=== PATIENT | male | born 1995 | race Hispanic/Latino ===

== ENCOUNTER 2024-05-27 19:02 | Inpatient (IN) | payer OTHER ==
[~2024-05-27] VITALS: Ht 160 cm; Wt 99.6 kg
[2024-05-27 19:53] LABS: ADD UA MICROSCOPIC NO; APPEARANCE,URINE CLEAR (CLEAR); BILIRUBIN,URINE NEGATIVE (NEGATIVE); COLOR,URINE COLORLESS (YELLOW); GLUCOSE, URINE (UA) >=1000 mg/dL (NEGATIVE); KETONES,URINE 150 mg/dL (NEGATIVE); LEUKOCYTE ESTERASE ,URINE NEGATIVE Leu/uL (NEGATIVE); NITRATE,URINE NEGATIVE (NEGATIVE); OCCULT BLOOD,URINE SMALL (NEGATIVE); PROTEIN,URINE 30 mg/dL (NEGATIVE); UROBILINOGEN,URINE 0.2 mg/dL (0.2-1.0)
[2024-05-27 19:55] LABS: MUCUS,URINE RARE LPF (None Seen); RBC,URINE 0-1 /HPF (0-1); WBC,URINE 0-1 /HPF (0-1)
[2024-05-27 20:40] LABS: BASOPHILS # (AUTO) 0.04 K/uL (0.00-0.20); BASOPHILS % (AUTO) 0.4 % (0.0-5.0); EOSINOPHILS % (AUTO) 1.1 % (0.0-8.0); HEMATOCRIT 48.5 % (42-54); IMMATURE GRANULOCYTE ABSOLUTE 0.04 K/uL (0-1); LYMPHOCYTES # (AUTO) 0.9 K/uL (1.0-4.8); LYMPHOCYTES % (AUTO) 9.2 % (21.0-51.0); MEAN CORPUSCULAR HGB CONC 35.3 g/dL (32.0-36.0); MEAN CORPUSCULAR VOLUME 85.1 fL (79-99); MONOCYTES # (AUTO) 0.5 K/uL (0.1-1.0); MONOCYTES % (AUTO) 5.4 % (3.0-13.0); NEUTROPHILS # (AUTO) 7.8 K/uL (1.8-7.7); NEUTROPHILS % (AUTO) 83.5 % (40.0-77.0); PLATELET COUNT (AUTO) 269 K/uL (130-400); RED CELL DISTRIBUTION WIDTH 13.2 % (11.0-15.5); WHITE BLOOD COUNT (AUTO) 9.3 K/uL (4.8-10.8)
[2024-05-27 20:54] LABS: CARBON DIOXIDE 11 mmol/L (21-32); CHLORIDE 95 mmol/L (101-111); CREATININE 1.2 mg/dL (0.5-1.3); GLOMERULAR FILTR. RATE CALC 86 mL/min (>90); GLUCOSE,RANDOM 162 mg/dL (70-105); POTASSIUM 4.6 mmol/L (3.5-5.1); SODIUM SERUM 133 mmol/L (136-145); UREA NITROGEN, BLOOD 10 mg/dL (7-18)
[2024-05-27] MEDS ORDERED: INSULIN humuLIN R 100 UNIT/ML 3ML IJ STA (20:55)
[2024-05-27 22:11] LABS: HEMOGLOBIN A1C 10.7 % (4.0-6.0)
[2024-05-27 22:26] LABS: CREATINE KINASE, TOTAL 365 U/L (21-232)
[2024-05-27] MEDS: 0.9%NACL 1000ML 1,000 ML IV ONE (22:34)
[2024-05-27] MEDS: ONDANSETRON 4MG INJ ONE (22:34)
[2024-05-27] MEDS: ONDANSETRON 4MG INJ IVP ONE (22:34)
[2024-05-27] MEDS: 0.9%NACL 1000ML 1,000 ML IV SCH (22:45)
[2024-05-27] MEDS: [UNRECOGNIZED DRUG - OTHER] IV ONE (22:45)
[2024-05-27] MEDS: D5W-1/2 NS/20MEQ KCL 1,000 ML IV SCH (22:49)
[2024-05-27] MEDS ORDERED: INSULIN REGULAR, HUMAN 3ML 100 UNIT in 0.9%NACL 100ML 100 ML IV SCH (23:00)
[2024-05-27] MEDS ORDERED: DEXTROSE 5 %-0.45 % NACL 1,000 ML IV SCH ×3 (23:00)
[2024-05-27] MEDS ORDERED: POTASSIUM CHLORIDE 20MEQ/10ML 20 MEQ in 0.9%NACL 1000ML 1,000 ML IV SCH ×3 (23:00)
[2024-05-27] MEDS ORDERED: acetaMINOPHEN 325 MG TAB PO PRN (23:00)
[2024-05-27] MEDS ORDERED: MANNITOL 20% 500 ML IV.SOLN IV SCH (23:00)
[2024-05-27] MEDS ORDERED: 0.9%NACL 1000ML 1,000 ML IV SCH ×2 (23:00)
[2024-05-27] MEDS ORDERED: MAGNESIUM 2GM PREMIX 50ML 50 ML IV SCH ×3 (23:00)
[2024-05-27] MEDS ORDERED: D5W-1/2 NS/20MEQ KCL 1,000 ML IV SCH ×2 (23:00)
[2024-05-27 23:21] LABS: CREATININE 0.9 mg/dL (0.5-1.3); POTASSIUM 3.7 mmol/L (3.5-5.1)
[2024-05-27] MEDS: PHARMACY COMMUNICATION MISC SCH (23:45)
[2024-05-28] VITALS (37 sets, daily range): BP systolic 94–123; BP diastolic 31–73; PULSE 63–107; RESP 13–29; TEMP 97.2–98.6; O2SAT 96–99
[2024-05-28] MEDS ORDERED: 0.9%NACL 1000ML 2,000 ML IV SCH
[2024-05-28] MEDS: SODIUM BICARB 50MEQ 50ML VIAL IV ONE ×2 (00:09→13:20)
[2024-05-28] MEDS: DEXTROSE 10% IV SCH (00:25)
[2024-05-28] MEDS: POTASSIUM CHLORIDE IV SCH (00:25)
[2024-05-28] MEDS: WATER IV SCH (00:25)
[2024-05-28] MEDS: INSULIN REGULAR, HUMAN 3ML 100 UNIT in 0.9%NACL 100ML 100 ML IV SCH (01:57)
[2024-05-28 04:03] LABS: ABG OXYGEN SATURATION 46.8 % (94.0-98.0); BASE EXCESS,VENOUS BLOOD GAS -18.6 (-2.0-3.0); HCO3,VENOUS BLOOD GAS 7.4 (22.0-29.0); PCO2,VENOUS BLOOD GAS 20 (38-54); PH,VENOUS BLOOD GAS 7.188 (7.320-7.430); PO2,VENOUS BLOOD GAS 30.6 mmHg (23.0-48.0); VENT MODE, BG RA (ROOM AIR)
[2024-05-28 04:09] LABS: BASOPHILS # (AUTO) 0.01 K/uL (0.00-0.20); BASOPHILS % (AUTO) 0.1 % (0.0-5.0); EOSINOPHILS # (AUTO) 0.01 K/uL (0.00-0.70); EOSINOPHILS % (AUTO) 0.1 % (0.0-8.0); HEMATOCRIT 41.1 % (42-54); IMMATURE GRANULOCYTE ABSOLUTE 0.03 K/uL (0-1); LYMPHOCYTES # (AUTO) 0.9 K/uL (1.0-4.8); LYMPHOCYTES % (AUTO) 11.7 % (21.0-51.0); MEAN CORPUSCULAR HEMOGLOBIN 30.2 pg (27.0-33.0); MEAN CORPUSCULAR HGB CONC 34.5 g/dL (32.0-36.0); MEAN CORPUSCULAR VOLUME 87.4 fL (79-99); MONOCYTES # (AUTO) 0.8 K/uL (0.1-1.0); MONOCYTES % (AUTO) 9.9 % (3.0-13.0); NEUTROPHILS # (AUTO) 5.9 K/uL (1.8-7.7); NEUTROPHILS % (AUTO) 77.8 % (40.0-77.0); PLATELET COUNT (AUTO) 232 K/uL (130-400); RED CELL DISTRIBUTION WIDTH 13.4 % (11.0-15.5); WHITE BLOOD COUNT (AUTO) 7.6 K/uL (4.8-10.8)
[2024-05-28 04:22] LABS: CREATININE 1.1 mg/dL (0.5-1.3); POTASSIUM 4.3 mmol/L (3.5-5.1)
[2024-05-28 04:25] LABS: HEMOGLOBIN A1C 11.1 % (4.0-6.0)
[2024-05-28] MEDS: 0.9%NACL 1000ML 1,000 ML IV ONE (04:31)
[2024-05-28 04:48] LABS: MAGNESIUM 2.1 mg/dL (1.80-2.40); PHOSPHORUS 1.9 mg/dL (2.5-4.9); THYROID STIMULATING HORMONE 0.78 uIU/mL (0.36-3.74)
[2024-05-28 05:26] LABS: SARS-CoV-2, RNA, NAAT NEGATIVE SARS CoV-2 (NEGATIVE)
[2024-05-28 05:32] LABS: INFLUENZA TYPE A Negative For Type A (NEGATIVE); INFLUENZA TYPE B Negative For Type B (NEGATIVE)
[2024-05-28 05:38] LABS: RAPID GROUP A STREP negative (NEGATIVE)
[2024-05-28] MEDS: NEUtra-PHOS PACKET 1 EACH PO SCH (06:03)
[2024-05-28 08:29] LABS: ABG OXYGEN SATURATION 82.2 % (94.0-98.0); BASE EXCESS,VENOUS BLOOD GAS -18.7 (-2.0-3.0); DEVICE COMMENT LEO RN VENOUS; HCO3,VENOUS BLOOD GAS 8.2 (22.0-29.0); PCO2,VENOUS BLOOD GAS 23 (38-54); PH,VENOUS BLOOD GAS 7.162 (7.320-7.430); PO2,VENOUS BLOOD GAS 45.1 mmHg (23.0-48.0); VENT MODE, BG RA (ROOM AIR)
[2024-05-28] MEDS: PANTOPRAZOLE 40 MG/VIAL IVP SCH (09:15)
[2024-05-28 10:23] LABS: CREATININE 1.1 mg/dL (0.5-1.3); POTASSIUM 3.2 mmol/L (3.5-5.1)
[2024-05-28] MEDS: CEFTRIAXONE 2GM VIAL IVPB SCH (13:15)
[2024-05-28] MEDS: INSULIN GLARgine 100 UNITS/ML 10 ML VIAL SQ SCH (13:26)
[2024-05-28] MEDS: 0.9% NACL 500ML IV.SOLN 500 ML IV ONE (13:47)
[2024-05-28] MEDS: LACTATED RINGERS 1000ML IV ONE (15:03)
[2024-05-29] VITALS (71 sets, daily range): BP systolic 98–135; BP diastolic 47–101; PULSE 62–111; RESP 10–97; TEMP 97.9–98.9; O2SAT 96–100
[2024-05-29 00:35] LABS: CREATININE 1.1 mg/dL (0.5-1.3)
[2024-05-29] MEDS ORDERED: MAGNESIUM 2GM PREMIX 50ML 50 ML IV PRN (02:00)
[2024-05-29] MEDS ORDERED: POTASSIUM CHLORIDE 20MEQ/100ML 100 ML IV PRN (02:00)
[2024-05-29] MEDS: POTASSIUM CHLORIDE 20MEQ/100ML 100 ML IV ONE (02:02)
[2024-05-29] MEDS: KCL 20 MEQ ERTAB PO ONE (02:03)
[2024-05-29 03:59] LABS: BASOPHILS # (AUTO) 0.02 K/uL (0.00-0.20); BASOPHILS % (AUTO) 0.4 % (0.0-5.0); EOSINOPHILS # (AUTO) 0.02 K/uL (0.00-0.70); EOSINOPHILS % (AUTO) 0.4 % (0.0-8.0); HEMATOCRIT 42.1 % (42-54); IMMATURE GRANULOCYTE ABSOLUTE 0.02 K/uL (0-1); LYMPHOCYTES # (AUTO) 1.1 K/uL (1.0-4.8); LYMPHOCYTES % (AUTO) 19.3 % (21.0-51.0); MEAN CORPUSCULAR HGB CONC 35.2 g/dL (32.0-36.0); MEAN CORPUSCULAR VOLUME 85.2 fL (79-99); MONOCYTES # (AUTO) 0.6 K/uL (0.1-1.0); NEUTROPHILS # (AUTO) 3.8 K/uL (1.8-7.7); NEUTROPHILS % (AUTO) 68.5 % (40.0-77.0); PLATELET COUNT (AUTO) 233 K/uL (130-400); RED BLOOD CELL COUNT(AUTO) 4.94 MIL/uL (4.50-6.20); RED CELL DISTRIBUTION WIDTH 14.3 % (11.0-15.5); WHITE BLOOD COUNT (AUTO) 5.5 K/uL (4.8-10.8)
[2024-05-29 04:17] LABS: MAGNESIUM 2.3 mg/dL (1.80-2.40); PHOSPHORUS 1.8 mg/dL (2.5-4.9); POTASSIUM 3.5 mmol/L (3.5-5.1)
[2024-05-29] MEDS: KCL 20 MEQ ERTAB PO PRN ×2 (05:08→16:52)
[2024-05-29] MEDS: LACTATED RINGERS 1000ML IV ONE (08:11)
[2024-05-29 08:16] LABS: POTASSIUM 3.8 mmol/L (3.5-5.1)
[2024-05-29] MEDS: ENOXAPARIN SODIUM 40 MG/0.4 ML SYRINGE SQ SCH (08:28)
[2024-05-29] MEDS: INSULIN GLARgine 100 UNITS/ML 10 ML VIAL SQ ONE (09:42)
[2024-05-29 12:22] LABS: POTASSIUM 3.1 mmol/L (3.5-5.1)
[2024-05-29] MEDS: POTASSIUM CHLORIDE 10% ELIXIR 20 MEQ/15 ML UDCUP PO PRN ×2 (12:41→16:51)
[2024-05-29] MEDS: NEUtra-PHOS PACKET 1 EACH PO SCH (13:57)
[2024-05-29] MEDS: DEXTROSE 10%-WATER 1,000 ML IV SCH (13:58)
[2024-05-29] MEDS ORDERED: POTASSIUM CHLORIDE 10MEQ/100ML 100 ML IV PRN (14:00)
[2024-05-29] MEDS ORDERED: MAGNESIUM 2GM PREMIX 50ML 50 ML IV SCH (14:00)
[2024-05-29] MEDS ORDERED: INSULIN REGULAR 100 UNIT in 0.9%NACL 100ML IV SCH (14:00)
[2024-05-29 14:49] LABS: POTASSIUM 3.4 mmol/L (3.5-5.1)
[2024-05-29] MEDS ORDERED: SODIUM CHLORIDE 1,000 MG TAB PO SCH (16:30)
[2024-05-29 16:54] LABS: CREATININE 1.1 mg/dL (0.5-1.3); POTASSIUM 3.5 mmol/L (3.5-5.1)
[2024-05-29] MEDS: SODIUM CL IV SCH (17:42)
[2024-05-29] MEDS: WATER IV SCH (17:42)
[2024-05-29] MEDS: DEXTROSE 10% IV SCH (17:42)
[2024-05-29 20:16] LABS: POTASSIUM 3.5 mmol/L (3.5-5.1)
[2024-05-29] MEDS ORDERED: INSULIN GLARgine 100 UNITS/ML 10 ML VIAL SQ SCH (21:00)
[2024-05-29] MEDS ORDERED: D5W-1/2 NS/20MEQ KCL 1,000 ML IV PRN (21:00)
[2024-05-29] MEDS: NS-20 MEQ KCL 1000ML 1,000 ML IV PRN (21:04)
[2024-05-29] MEDS: D5 NS WITH 20 mEq KCl 1000ML IV PRN (22:07)
[2024-05-30] VITALS (20 sets, daily range): BP systolic 119–140; BP diastolic 52–71; PULSE 69–95; RESP 10–162; TEMP 98.5–98.8; O2SAT 96–97
[2024-05-30 01:10] LABS: CREATININE 0.9 mg/dL (0.5-1.3); POTASSIUM 3.3 mmol/L (3.5-5.1)
[2024-05-30] MEDS: DEXTROSE 5 % AND 0.9 % NACL 1,000 ML IV SCH (04:32)
[2024-05-30 05:25] LABS: BASOPHILS # (AUTO) 0.02 K/uL (0.00-0.20); BASOPHILS % (AUTO) 0.6 % (0.0-5.0); EOSINOPHILS # (AUTO) 0.04 K/uL (0.00-0.70); EOSINOPHILS % (AUTO) 1.1 % (0.0-8.0); HEMATOCRIT 39.4 % (42-54); IMMATURE GRANULOCYTE ABSOLUTE 0.02 K/uL (0-1); LYMPHOCYTES # (AUTO) 1.1 K/uL (1.0-4.8); MEAN CORPUSCULAR HEMOGLOBIN 30.4 pg (27.0-33.0); MEAN CORPUSCULAR VOLUME 84.4 fL (79-99); MONOCYTES # (AUTO) 0.5 K/uL (0.1-1.0); MONOCYTES % (AUTO) 12.5 % (3.0-13.0); NEUTROPHILS % (AUTO) 55.2 % (40.0-77.0); PLATELET COUNT (AUTO) 197 K/uL (130-400); RED BLOOD CELL COUNT(AUTO) 4.67 MIL/uL (4.50-6.20); RED CELL DISTRIBUTION WIDTH 13.7 % (11.0-15.5); WHITE BLOOD COUNT (AUTO) 3.6 K/uL (4.8-10.8)
[2024-05-30 05:43] LABS: CREATININE 0.9 mg/dL (0.5-1.3); MAGNESIUM 1.9 mg/dL (1.80-2.40); PHOSPHORUS 1.7 mg/dL (2.5-4.9); POTASSIUM 3.6 mmol/L (3.5-5.1)
[2024-05-30] MEDS ORDERED: MAGNESIUM 2GM PREMIX 50ML 50 ML IV PRN (10:00)
[2024-05-30] MEDS ORDERED: KCL 20 MEQ ERTAB PO PRN (10:00)
[2024-05-30] MEDS ORDERED: POTASSIUM CHLORIDE 20MEQ/100ML 100 ML IV PRN ×2 (10:00)
[2024-05-30] MEDS ORDERED: POTASSIUM CHLORIDE 10% ELIXIR 20 MEQ/15 ML UDCUP PO PRN (10:00)
[2024-05-30] MEDS: 0.9%NACL 1000ML 1,000 ML IV SCH (12:15)
[2024-05-30] MEDS: INSULIN humuLIN R 100 UNIT/ML 3ML SQ SCH (12:31)
[2024-05-30] MEDS: INSULIN GLARgine 100 UNITS/ML 10 ML VIAL SQ SCH (12:32)
[2024-05-30] MEDS ORDERED: INSLAN SQ (13:37)
== END 2024-05-30 15:50 | disposition home or self-care (01) | DRG 638 ==
LOC: EDH 19:02 → EDHIP 22:35 → 2CH 05-28 02:20
PROVIDERS: ADMIT Hospitalist; ATTEND Hospitalist
DX: E11.10 Type 2 diabetes mellitus with ketoacidosis without coma (principal); E87.1 Hypo-osmolality and hyponatremia; N17.9 Acute kidney failure, unspecified; M62.82 Rhabdomyolysis; Z20.822 Contact with and (suspected) exposure to COVID-19; E87.6 Hypokalemia; E86.0 Dehydration; E66.9 Obesity, unspecified; E87.8 Other disorders of electrolyte and fluid balance, not elsewhere classified; Z68.36 Body mass index [BMI] 36.0-36.9, adult; Z79.84 Long term (current) use of oral hypoglycemic drugs; Z83.3 Family history of diabetes mellitus
CPT/HCPCS: 36415; 36600; 71045; 74176; 80048; 80061; 81003; 82010; 82435; 82550; 82803; 82947; 82948; 83036; 83605; 83690; 83735; 83930; 84100; 84132; 84145; 84295; 84443; 84484; 85025; 86341; 87040; 87635; 87804; 87880; 96375; G0378; J0696; J1650; J1815; J2405; J2470; J3475; J3480; J3490; J7030; J7131